=== PATIENT | male | born 1995 | race Two or more races ===

== ENCOUNTER 2025-02-06 18:44 | Inpatient (IN) | payer OTHER ==
[~2025-02-06] VITALS: Ht 167.6 cm; Wt 93.0 kg
--- NOTE | 2025-02-06 19:22 | ED.PDOC ---
History of Present Illness HPI Comments 30-year-old male with no significant past medical history presents to the ED with a chief complaint of a wound check to the right inner buttock. Patient is a status wound appeared back in early August and was prescribed antibiotics by his primary care physician, but notes of no alleviation for improvement upon taken the antibiotics. Patient notes that his wound commonly expresses bloody drainage, but today noticed blood coming out of his rectum. Wound site is noted to be erythremic, but no active bleeding, foreign body, or any other associated symptoms, modifying at this time. PHYSICAL EXAM: General: Awake, alert and oriented. No acute distress. Skin: Skin in warm, dry and intact. Appropriate color for ethnicity. HEENT: The head is normocephalic and atraumatic. Conjunctivae are clear without exudates or hemorrhage. Sclera is non-icteric. EOM are intact. No signs of nystagmus. Eyelids are normal in appearance without swelling or lesions. Oral mucosa is pink and moist Neck: The neck is supple with normal range of motion. No JVD. Cardiac: Heart rate and rhythm are normal. No murmurs, gallops, or rubs are auscultated. Respiratory: No signs of respiratory distress. Lung sounds are clear in all lobes bilaterally without rales, rhonchi, or wheezes. Abdominal: Abdomen is soft, non-tender without distention, guarding or rigidity. Bowel sounds are present and normoactive in all four quadrants. Extremities: Upper and lower extremities are atraumatic in appearance without deformity or edema. Neurological: The patient is awake, alert and oriented to person, place, and time with normal speech. Speech is clear. There is no facial asymmetry. Psychiatric: Appropriate mood and affect. Good judgement and insight. Pelvic: Fissure with no active bleeding, foreign body, mild erythema, to the right inner buttock REVIEW OF SYSTEMS: General: No fever, no chills, or fatigue HEENT: No sore throat, no earache, no congestion, no neck pain. Cardiac: No chest pain. No palpitations. Lungs: No shortness of breath, no cough. GI: No nausea, no vomiting, no diarrhea, no constipation, no abdominal pain : No dysuria, frequency, or urgency. No hematuria. Musculoskeletal: No joint pain , no joint swelling, no extremity edema. Skin: No rash, no itching. Neuro: No headache, no dizziness, no weakness Chief Complaint: Wound Check Time Seen by MD: 19:12 Reviewed Notes: Nurses Notes, Medications, Allergies Allergies: Coded Allergies: NO KNOWN ALLERGIES (Unverified , 02/07/25) Information Source: Patient Mode of Arrival: Ambulatory Severity: Moderate Timing: Months Duration: Intermittent Prehospital treatment: None Past Medical History PAST MEDICAL HISTORY: Denies Surgical History: Denies all surgeries Family History Family History: Unknown Social History Smoker: Non-Smoker Alcohol: Denies ETOH Use Drugs: Denies Drug Use Lives In: Home Was a procedure done? Was a procedure done?: No Differential Dx Considerations may include: Abscess, cellulitis, phlegmon, GI bleed, ruptured hemorrhoid, pilonidal cyst, other X-Ray, Labs, Meds, VS Vital Signs Date Time Temp Pulse Resp B/P (MAP) Pulse Ox O2 Delivery O2 Flow Rate FiO2 02/06/25 18:46 99.1 96 18 146/90 98 99.1 Lab Test 02/06/25 19:33 Range/Units White Blood Count 10.6 4.4-10.8 10^3/uL Red Blood Count 6.23 H 4.5-5.90 10^6/uL Hemoglobin 17.1 13.5-17.5 g/dL Hematocrit 49.4 41.0-53.0 % Mean Corpuscular Volume 79.3 L 80.0-100.0 fL Mean Corpuscular Hemoglobin 27.4 L 28.0-32.0 pg Mean Corpuscular Hemoglobin Concent 34.5 32.0-36.0 g/dL Red Cell Distribution Width 13.6 11.8-14.3 % Platelet Count 331 140-450 10^3/uL Mean Platelet Volume 6.5 L 6.9-10.8 fL Neutrophils (%) (Auto) 65.6 37.0-80.0 % Lymphocytes (%) (Auto) 28.0 10.0-50.0 % Monocytes (%) (Auto) 5.4 0.0-12.0 % Eosinophils (%) (Auto) 0.7 0.0-7.0 % Basophils (%) (Auto) 0.3 0.0-2.0 % Neutrophils # (Auto) 6.9 1.6-8.6 10 ^3/uL Lymphocytes # (Auto) 3.0 0.4-5.4 10 ^3/uL Monocytes # (Auto) 0.6 0-1.3 10 ^3/uL Eosinophils # (Auto) 0.1 0-0.8 10 ^3/uL Basophils # (Auto) 0 0-0.2 10 ^3/uL Nucleated Red Blood Cells 0.2 % Sodium Level 141 136-145 mmol/L Potassium Level 4.0 3.5-5.1 mmol/L Chloride Level 105 98-107 mmol/L Carbon Dioxide Level 25 20-31 mmol/L Anion Gap 11 5-15 Blood Urea Nitrogen 14 9-23 mg/dL Creatinine 1.19 0.700-1.30 mg/dL Glomerular Filtration Rate Calc 85 >90 mL/min BUN/Creatinine Ratio 11.8 10.0-20.0 Serum Glucose 95 74-106 mg/dL Lactic Acid Level 1.0 0.4-2.0 mmol/L Calcium Level 9.8 8.7-10.4 mg/dL Current Medications Medications (Trade) Dose Ordered Sig/Rebeca Route Start Time Stop Time Status Last Admin Ceftriaxone Sodium 50 ml @ 100 mls/hr ONCE ONCE IV 02/07/25 00:00 02/07/25 00:29 DC 02/07/25 01:21 PATIENT: JUANA HAN ACCT: [id number] UNIT: [id number] : 1995 LOC: ER ROOM / BED: / AGE / SEX: 30 / M ADM STATUS: REG ER SERVICE 192 ORDERING PHYSICIAN: REBECCA NEWBERRY MD PROCEDURE(s): ABPLIV - CT AB PEL WITH IV CON ONLY REASON: ? rectal /perirectal abscess, rectal bleeding ORDER NUMBER(s): [id number], ACCESSION NUMBER(s): [id number] Exam: CT CT AB PEL WITH IV CON ONLY History: rectal /perirectal abscess, rectal bleeding Comparison Study: None TECHNIQUE: Multidetector CT of the abdomen was performed from lung bases to pubic symphysis. Imaging was performed without IV contrast. Axial, coronal and sagittal multiplanar reformats were obtained from the axial data set by the technologist. Radiation Dose Information: Dose-length product is 1558.93 mGy*cm FINDINGS: Limited sections of the lung bases demonstrate no focal pulmonary mass. The liver, spleen, pancreas, and both adrenal glands demonstrate no acute findings. The gallbladder is unremarkable. The stomach is unremarkable. The small bowel loops are not dilated. The appendix is normal. No colonic obstruction. Colonic diverticulosis with acute diverticulitis. Scattered subcentimeter hypodensities throughout bilateral kidneys too small to accurately characterize. No hydronephrosis. The urinary bladder is partially distended. No significant lymphadenopathy. No free air or free fluid. The aorta and IVC demonstrate no acute findings. Visualized osseous structures demonstrate no acute abnormality. Partially visualized 1.4 x 2.8 cm fat stranding about the right perianal region incompletely evaluated due to collimation. Consider pelvic CT with IV contrast for further evaluation to assess for present of abscess. IMPRESSION: 1. Partially visualized 1.4 x 2.8 cm fat stranding about the right perianal region incompletely evaluated due to collimation. Consider pelvic CT with IV contrast for further evaluation to assess for present of abscess. 2. No acute intra-abdominal process. Time of 1ST Reevaluation: 19:42 Reevaluation 1ST: Unchanged Patient Education/Counseling: Other (Need for admission) Family Education/Counseling: No Family Present SEPSIS Sepsis Screen Date sepsis recognized/suspect: Feb 06, 2025 Time Sepsis recognized/suspect: 1849 Recent Procedure: No On Antibiotic Therapy: No Respiratory Rate >20: No Heart Rate >90: Yes Temp<36 C (96.8 F) or >38.3 C: No SBP <90 or MAP <65 mmHG: No New Acute Mental Status Change: No Is the patient on CPAP, BIPAP,: No Physician Orders Wound Culture W/ Gs (02/06/25 19:20) Saline Lock (02/06/25 19:20) Ct Ab Pel With Iv Con Only (02/06/25 19:20) Stool Occult Blood (02/06/25 19:25) Blood Culture (02/06/25 19:25) * Surgical Consult (02/06/25 ) Vital Signs Date Time Temp Pulse Resp B/P (MAP) Pulse Ox O2 Delivery O2 Flow Rate FiO2 02/06/25 18:46 99.1 96 18 146/90 98 99.1 Laboratory Tests Test 02/06/25 19:33 Lactic Acid Level 1.0 mmol/L (0.4-2.0) White Blood Count 10.6 10^3/uL (4.4-10.8) Medications Medications Dose Ordered Sig/Rebeca Route Start Time Stop Time Status Last Admin Dose Admin Ceftriaxone Sodium 50 ml @ 100 mls/hr ONCE ONCE IV 02/07/25 00:00 02/07/25 00:29 DC 02/07/25 01:21 Departure 1 Departure Time of Disposition: 04:36 Impression: Primary Impression: Cellulitis Additional Impression: Rectal bleeding Disposition: ADMITTED INPATIENT Condition: Stable Comments Patient admitted to hospitalist service for further treatment, evaluation and monitoring. Critical Care Note Critical Care Time?: No Stability Stability form required: No Heart Score Heart Score: Heart Score Response (Comments) Value History N/A 0 EKG N/A 0 Age N/A 0 Risk Factors N/A 0 Troponin N/A 0 Total 0 I personally scribed for REBECCA NEWBERRY MD ([email or web address]) on 02/06/25 at 19:22. Electronically submitted by Josh Klein ([email or web address]). I personally scribed for REBECCA NEWBERRY MD ([email or web address]) on 02/06/25 at 21:51. Electronically submitted by Josh Klein ([email or web address]). REBECCA NEWBERRY MD Feb 06, 2025 19:22
[2025-02-06 19:53] LABS: Mean Corpuscular Volume 79.3 fL (80.0-100.0); Nucleated Red Blood Cells % 0.2 %
[2025-02-06 19:54] LABS: Hematocrit 49.4 % (41.0-53.0); Hemoglobin 17.1 g/dL (13.5-17.5); Mean Corpuscular Hemoglobin 27.4 pg (28.0-32.0)
[2025-02-06 19:56] LABS: Anion Gap 11 (5-15); Carbon Dioxide 25 mmol/L (20-31); Chloride 105 mmol/L (98-107); Potassium 4.0 mmol/L (3.5-5.1); Sodium 141 mmol/L (136-145)
[2025-02-06 19:57] LABS: Calcium 9.8 mg/dL (8.7-10.4)
[2025-02-06 20:02] LABS: BUN/Creatinine Ratio 11.8 (10.0-20.0); Blood Urea Nitrogen 14 mg/dL (9-23); Glucose 95 mg/dL (74-106)
--- NOTE | 2025-02-06 21:29 | DVH ---
Exam: CT CT AB PEL WITH IV CON ONLY History: rectal /perirectal abscess, rectal bleeding Comparison Study: None TECHNIQUE: Multidetector CT of the abdomen was performed from lung bases to pubic symphysis. Imaging was performed without IV contrast. Axial, coronal and sagittal multiplanar reformats were obtained fr om the axial data set by the technologist. Radiation Dose Information: Dose-length product is 1558.93 mGy*cm FINDINGS: Limited sections of the lung bases demonstrate no focal pulmonary mass. The liver, spleen, pancreas, and both adrenal glands demonstrate no acute findings. The gallbladder is unremarkable. The stomach is unremarkable. The small bowel loops are not dilated. The appendix is normal. No colonic obstruction. Colonic diverticulosis with acute diverticulitis. Scattered subcentimeter hypodensities throughout bilateral kidneys too small to accurately characteri ze. No hydronephrosis. The urinary bladder is partially distended. No significant lymphadenopathy. No free air or free fluid. The aorta and IVC demonstrate no acute findings. Visualized osseous structures demonstrate no acute abnormality. Partially visualized 1.4 x 2.8 cm fat stranding about the right perianal region incompletely evaluate d due to collimation. Consider pelvic CT with IV contrast for further evaluation to assess for prese nt of abscess. IMPRESSION: 1. Partially visualized 1.4 x 2.8 cm fat stranding about the right perianal region incompletely evalu ated due to collimation. Consider pelvic CT with IV contrast for further evaluation to assess for pr esent of abscess. 2. No acute intra-abdominal process.
[2025-02-07] MEDS ORDERED: VANCOMYCIN 1GM/200ML PM 200 ML IV ONE
[2025-02-07] MEDS: cefTRIAXone 1GM/50ML D5W 50 ML IV ONE (01:21)
[2025-02-07] MEDS ORDERED: ONDANSETRON HCL 4 MG/2 ML VIAL IV PRN (02:30)
[2025-02-07] MEDS ORDERED: ACETAMINOPHEN 325 MG TAB PO PRN (02:30)
--- NOTE | 2025-02-07 03:24 | DVHHPRES ---
History of Present Illness Resident Creating Document: YADI VINCENT RESIDENT History of Present Illness 30-year-old male with history of hemorrhoids presents with an abscess in the perianal region. The patient reports it bleeds when manipulated. She reports having frequent bowel movements, not mixed with blood. She denies any diarrhea per rectal bleeding. There are some discharge from the abscess as well. He denies any chest pain, shortness of breath, fever, abdominal pain or any other complaints today. He had history of constipation previously, however it had improved. Past medical history: Hyperlipidemia Surgery: Dental surgery Family history: maternal grandmother had stomach cancer. No known allergies PCP: Code status: Full code Review of Systems Other Perianal abscess and pain Allergies: Coded Allergies: NO KNOWN ALLERGIES (Unverified , 02/07/25) Medications Current Medications Medications Dose Ordered Sig/Rebeca Route Start Time Stop Time Status Last Admin Dose Admin Sodium Chloride 10 ml Q8HR IV 02/07/25 06:00 UNV Sodium Chloride 1,000 ml @ 60 mls/hr [id number] IV 02/07/25 02:30 UNV Acetaminophen 325 mg Q4HP PRN PO 02/07/25 02:30 UNV Ondansetron HCl 4 mg Q4HP PRN IV 02/07/25 02:30 UNV Exam Vital Signs Vital Signs Date Time Temp Pulse Resp B/P (MAP) Pulse Ox O2 Delivery O2 Flow Rate FiO2 02/06/25 18:46 99.1 96 18 146/90 98 99.1 Exam Pt is lying on bed General Appearance: Alert, Oriented X3, Cooperative, Mild distress HEENT: Atraumatic, Mucous membranes moist/pink Respiratory: Clear to auscultation, Normal air movement, No added sounds Cardiovascular: Regular rate, Normal S1, Normal S2, No murmurs Abdominal/ : Active bowel sounds, Soft, no distention, no tenderness MYA: Perianal abscess and surrounding erythema present. No active bleeding per rectal. Extremities: No edema, Normal pulses, No tenderness/swelling Skin: No Significant rash, except past surgical scars Neuro: Normal speech, sensorimotor deficits none Psych/Mental Status: Mental status NL, Mood NL Nurse was there as manager produce during examination Labs/Xrays Labs Test 02/06/25 19:33 Range/Units White Blood Count 10.6 4.4-10.8 10^3/uL Red Blood Count 6.23 H 4.5-5.90 10^6/uL Hemoglobin 17.1 13.5-17.5 g/dL Hematocrit 49.4 41.0-53.0 % Mean Corpuscular Volume 79.3 L 80.0-100.0 fL Mean Corpuscular Hemoglobin 27.4 L 28.0-32.0 pg Mean Corpuscular Hemoglobin Concent 34.5 32.0-36.0 g/dL Red Cell Distribution Width 13.6 11.8-14.3 % Platelet Count 331 140-450 10^3/uL Mean Platelet Volume 6.5 L 6.9-10.8 fL Neutrophils (%) (Auto) 65.6 37.0-80.0 % Lymphocytes (%) (Auto) 28.0 10.0-50.0 % Monocytes (%) (Auto) 5.4 0.0-12.0 % Eosinophils (%) (Auto) 0.7 0.0-7.0 % Basophils (%) (Auto) 0.3 0.0-2.0 % Neutrophils # (Auto) 6.9 1.6-8.6 10 ^3/uL Lymphocytes # (Auto) 3.0 0.4-5.4 10 ^3/uL Monocytes # (Auto) 0.6 0-1.3 10 ^3/uL Eosinophils # (Auto) 0.1 0-0.8 10 ^3/uL Basophils # (Auto) 0 0-0.2 10 ^3/uL Nucleated Red Blood Cells 0.2 % Sodium Level 141 136-145 mmol/L Potassium Level 4.0 3.5-5.1 mmol/L Chloride Level 105 98-107 mmol/L Carbon Dioxide Level 25 20-31 mmol/L Anion Gap 11 5-15 Blood Urea Nitrogen 14 9-23 mg/dL Creatinine 1.19 0.700-1.30 mg/dL Glomerular Filtration Rate Calc 85 >90 mL/min BUN/Creatinine Ratio 11.8 10.0-20.0 Serum Glucose 95 74-106 mg/dL Lactic Acid Level 1.0 0.4-2.0 mmol/L Calcium Level 9.8 8.7-10.4 mg/dL SEPSIS Sepsis Screen Date sepsis recognized/suspect: Feb 06, 2025 Time Sepsis recognized/suspect: 1849 Recent Procedure: No On Antibiotic Therapy: No Respiratory Rate >20: No Heart Rate >90: Yes Temp<36 C (96.8 F) or >38.3 C: No SBP <90 or MAP <65 mmHG: No New Acute Mental Status Change: No Is the patient on CPAP, BIPAP,: No Physician Orders Wound Culture W/ Gs (02/06/25 19:20) Saline Lock (02/06/25 19:20) Ct Ab Pel With Iv Con Only (02/06/25 19:20) Stool Occult Blood (02/06/25 19:25) Blood Culture (02/06/25 19:25) * Surgical Consult (02/06/25 ) Admit (02/07/25 02:19) Allergies (02/07/25 02:19) Code Status (02/07/25 02:19) Full Liq Diet (02/07/25 Breakfast) Sodium Chloride Lock (Saline Lock Ns) (02/07/25 06:00) Sodium Chloride 0.9% (02/07/25 02:30) Acetaminophen Tablet (Tylenol Tablet) (02/07/25 02:30) Ondansetron Hcl (Zofran) (02/07/25 02:30) Complete Blood Count (02/08/25 04:00) Comprehensive Metabolic Panel (02/08/25 04:00) Notify Md Of Changes From Base (02/07/25 02:19) Laboratory Tests Test 02/06/25 19:33 Lactic Acid Level 1.0 mmol/L (0.4-2.0) White Blood Count 10.6 10^3/uL (4.4-10.8) Medications Medications Dose Ordered Sig/Rebeca Route Start Time Stop Time Status Last Admin Dose Admin Ceftriaxone Sodium 50 ml @ 100 mls/hr ONCE ONCE IV 02/07/25 00:00 02/07/25 00:29 DC 02/07/25 01:21 100 MLS/HR Assessment/Plan Assessment/Plan Perianal abscess: Pain management Zosyn Surgical consult GI prophylaxis: Not indicated DVT prophylaxis: Not indicated Diet: Regular Goals of care discussed with the patient for more than 27 minutes: Full code status Case discussed with Dr. Singh , patient and RN Plan discussed with: Patient, Other My Orders Orders - YADI VINCENT RESIDENT Procedure Category Date Status Time Admit ADMIT 02/07/25 Transmitted 02:19 Allergies VALENTIN 02/07/25 In Process 02:19 Code Status CODE 02/07/25 Transmitted 02:19 Full Liq Diet DIET 02/07/25 Transmitted Breakfast Sodium Chloride Lock PHA 02/07/25 Logged (Saline Lock Ns) 06:00 Sodium Chloride 0.9% PHA 02/07/25 Logged 02:30 Acetaminophen Tablet PHA 02/07/25 Logged (Tylenol Tablet) 02:30 Ondansetron Hcl PHA 02/07/25 Logged (Zofran) 02:30 Complete Blood Count LAB 02/08/25 Verified 04:00 Comprehensive LAB 02/08/25 Verified Metabolic Panel 04:00 Notify Of Changes VALENTIN 02/07/25 In Process From Base 02:19 Date of Service: Feb 07, 2025 Billing Provider: SAIRA SINGH MD Common Visit Codes: [id number] INP/OBS CARE (HIGH) Secondary Visit Codes: [id number] CARE PLAN 30 MINUTES YADI VINCENT Feb 07, 2025 03:24
[2025-02-07] MEDS: SODIUM CHLORIDE 0.9% 1,000 ML IV SCH (03:49)
[2025-02-07] MEDS: OMNIPAQUE 12mg/ml 500ml ORAL SOLUTION PO ONE (10:32)
[2025-02-07] MEDS: IOHEXOL 300 MG/ML 100ML BOTTLE IJ ONE ×2 (10:32→15:46)
[2025-02-07] MEDS: PIPERACILLIN-TAZOB 3.375GM 100 ML IV SCH (10:32)
[2025-02-07] MEDS: SODIUM CHLOR 0.9% PF (SALINE LOCK) 10ML VIAL/SYR IV SCH (10:32)
[2025-02-07 15:54] VITALS: PULSE 71; RESP 19; O2SAT 98
--- NOTE | 2025-02-07 16:14 | DVHPNRES ---
Progress Note Date Seen: Feb 07, 2025 Resident Creating Document: AMNA GÓMEZ GREG Has the PT tested + for MRSA If YES, has PT been informed?: No Medical Necessity Reason Pt with a Central, PICC or Fol: No Subjective Review of Systems 30-year-old male with history of hemorrhoids presents with an abscess in the perianal region. The patient reports it bleeds when manipulated. She reports having frequent bowel movements, not mixed with blood. She denies any diarrhea per rectal bleeding. There are some discharge from the abscess as well. He denies any chest pain, shortness of breath, fever, abdominal pain or any other complaints today. He had history of constipation previously, however it had improved. Past medical history: Hyperlipidemia Surgery: Dental surgery Family history: maternal grandmother had stomach cancer. No known allergies PCP: Seen and examined at bedside. Patient is still complaining of perineal discomfort and discharge. Objective vital signs Vital Sign Date Time Temp Pulse Resp B/P (MAP) Pulse Ox O2 Delivery O2 Flow Rate FiO2 02/07/25 15:54 71 19 98 Room Air* 0 21 02/07/25 15:02 115/70 (85) 02/06/25 18:46 99.1 99.1 Total Intake and Output 02/06/25 02/06/25 02/07/25 14:59 22:59 06:59 Intake Total 50 ml Balance 50 ml medications Current Medications Medications Dose Ordered Sig/Rebeca Route Start Time Stop Time Status Last Admin Dose Admin Sodium Chloride 10 ml Q8HR IV 02/07/25 06:00 02/07/25 15:46 10 ML Sodium Chloride 1,000 ml @ 60 mls/hr [id number] IV 02/07/25 02:30 Acetaminophen 325 mg Q4HP PRN PO 02/07/25 02:30 Ondansetron HCl 4 mg Q4HP PRN IV 02/07/25 02:30 Piperacillin Sod/ Tazobactam Sod 100 ml @ 25 mls/hr Q8HR IV 02/07/25 06:00 02/07/25 10:32 25 MLS/HR Examination General Appearance: Alert, Oriented X3, Cooperative, No acute distress HEENT: Atraumatic, PERRLA, EOMI, Mucous membrane moist/pink Respiratory: Clear to auscultation, Normal air movement Cardiovascular: Regular rate, Normal S1, Normal S2, No murmurs, no chest wall tenderness Abdominal: Normal bowel sounds, Soft, No tenderness, No hepatospenomegaly, No masses Extremities: No clubbing, No cyanosis, No edema, Normal pulses, No tenderness/swelling Skin: A swelling of 3 * 3 cm at perianal area, with purulent discharge, tender and swollen Neuro: Normal gait, Normal speech, Strength at 5/5 X4 ext, Normal tone, Sensation intact, Cranial nerves 3-12 NL, Reflexes 2+ Psych/Mental Status: Mental status NL, Mood NL laboratory and microbiology Laboratory Tests 02/06/25 19:33 Test 02/06/25 19:33 Range/Units Serum Glucose 95 74-106 mg/dL Labs and/or images reviewed: Image(s) reviewed by me Problem List/Assessment/Plan Problem List/Assessment/Plan Perianal abscess Possible perianal fistula History of hypertension Dyslipidemia History of recurrent perianal abscess * CT scan shows, Partially visualized 1.4 x 2.8 cm fat stranding about the right perianal region incompletely evaluated due to collimation. Plan/recommendation * Empiric antibiotics Zosyn * IV fluid * Pain management * CT scan with IV contrast/order contrast * Consulted surgery DIET: Regular CODE STATUS: Goal of care discussed for more than 18 minutes, full code DISPOSITION: Med/surge Patient's status and plan discussed with the patient. Case discussed with Dr. Napoles. Plan discussed with: Patient, Other My Orders My Orders Orders - EMILEE GÓMEZWAD RESDIENT Procedure Category Date Status Time * Surgical Consult CONS 02/07/25 Transmitted 08:51 Date of Service: Feb 07, 2025 Billing Provider: BRITT NAPOLES MD Common Visit Codes: [id number] INP/OBS CARE(HIGH) HEWADMAL,HEWAD RESDIENT Feb 07, 2025 16:14 BRITT NAPOLES MD Feb 09, 2025 22:43
--- NOTE | 2025-02-07 16:19 | DVH ---
Exam: CT PELVIS WITH CONTRAST ONLY History: r/o perianal abscess and fistula in ano Comparison Study: CT CT AB PEL WITH IV CON ONLY on DOS: 02/06/25 Technique: Multidetector CT of the pelvis was performed from iliac crests to pubic symphysis after th e administration of intravenous contrast was administered during this examination. Portal venous imag ing was obtained. Axial, coronal and sagittal multiplanar reformats were performed by the [employer] t on a separate workstation. Radiation Dose : CT Dose: CTDI volume is 24.49 mGy. Dose-length product is 1199.11 mGy*cm Findings: Visualized bowel: No bowel wall thickening or dilatation. Ascites: Absent Lymphadenopathy: No pelvic or mesenteric lymphadenopathy. Vasculature: The visualized abdominal aorta is normal in size and caliber. Abdominal and pelvic vesse ls demonstrate normal enhancement. Pelvic Organs: Unremarkable Musculoskeletal: No acute osseous abnormality. Bladder: Unremarkable Soft tissues: 1.4 x 2.8 cm fat stranding about the right perianal region. No drainable fluid collection. Findings likely represent infectious process. IMPRESSION: 1.4 x 2.8 cm fat stranding about the right perianal region. No drainable fluid collection. Findings likely represent infectious process. All CT scans at this medical facility are performed using dose modulation techniques as appropriate t o a performed exam including the following: Automated exposure control was utilized; adjustment of th e MA and/or KV according to patient size; and use of iterative reconstruction technique.
[2025-02-07 17:25] VITALS: TEMP 98.2
[2025-02-07 18:54] VITALS: BP 118/73; PULSE 80; RESP 20; O2SAT 95
[2025-02-07 19:15] LABS: INR 1.01 (0.9-1.15); Prothrombin Time 10.7 sec (9.3-11.8)
== END 2025-02-07 19:11 | disposition left against medical advice (07) | DRG 394 ==
LOC: ER 18:44 → OVERFLOW 02-07 02:19
PROVIDERS: ADMIT Student in an Organized Health Care Education/Training Program; ATTEND Emergency Medicine
DX: K61.0 Anal abscess (principal); K62.5 Hemorrhage of anus and rectum; L03.315 Cellulitis of perineum; I10 Essential (primary) hypertension; E78.5 Hyperlipidemia, unspecified; Z53.29 Procedure and treatment not carried out because of patient's decision for other reasons; Z80.0 Family history of malignant neoplasm of digestive organs
CPT/HCPCS: 36415; 72193; 74177; 80048; 83605; 85025; 85610; 85652; 86141; 86703; 87040; 96365; G0378; J2543